=== PATIENT | male | born 1990 | race African-American/Black ===

== ENCOUNTER 2022-10-24 11:58 | Emergency (ER) | payer MEDICAID ==
[~2022-10-24] VITALS: Ht 170.2 cm; Wt 61.4 kg
[2022-10-24 12:04] VITALS: BP 142/94; PULSE 74; RESP 16; TEMP 98.4
== END 2022-10-24 15:30 | disposition home or self-care (01) ==
LOC: EMS 11:58
DX: S61.411D Laceration without foreign body of right hand, subsequent encounter (principal); Z98.890 Other specified postprocedural states; Z48.02 Encounter for removal of sutures; X58.XXXD Exposure to other specified factors, subsequent encounter
CPT/HCPCS: 99281; Z7502